=== PATIENT | female | born 1980 | race Caucasian/White ===

== ENCOUNTER → 2018-12-22 | Outpatient (CLI) | payer OTHER ==
--- NOTE | 2018-12-22 10:57 | REP ---
LEFT HAND SERIES: Four views. HISTORY: Middle finger injury left hand. FINDINGS: There is an obliquely oriented fracture through the proximal phalanx of the long finger of the left hand with associated swelling. There is a mild comminution. On lateral film there is some apex volar angulation. Impression: Slightly comminuted and somewhat angulated fracture proximal phalanx long finger left hand. Electronically Signed by Marquis Link MD 12/22/2018 03:12 P
== END ==
LOC: M LRY 10:01
PROVIDERS: ATTEND Nurse Practitioner Family
DX: S69.92XA Unspecified injury of left wrist, hand and finger(s), initial encounter (principal); W18.30XA Fall on same level, unspecified, initial encounter; Y92.009 Unspecified place in unspecified non-institutional (private) residence as the place of occurrence of the external cause